=== PATIENT | male | born 1945 | race Caucasian/White ===

== ENCOUNTER → 2017-02-15 | Outpatient (CLI) | payer OTHER ==
[~2017-02-15] MED LIST: ALBUAER19 INH; ASPI81TA28 PO; ATOR10TA82 PO; Amoxicillin PO; ENAL20TA PO; FLUT0.15 NAE; FRS/40 PO; GABA-113 PO; GLYB-108 PO; MAGN400T6 PO; MONT1TAB5 PO; Metoprolol ER PO; SILD100T PO; TAMS0.4C38 PO; TEST1INJ2 INJ
[2017-02-15 16:55] LABS: SYNOVIAL FLUID APPEARANCE CLEAR; SYNOVIAL FLUID COLOR YELLOW; SYNOVIAL FLUID MONONUC RELAT 55.4 %; SYNOVIAL FLUID POLYNUC RELAT 44.6 %
== END | disposition home or self-care (01) ==
LOC: C.LAB 13:37
PROVIDERS: ATTEND Orthopaedic Surgery
DX: M25.462 Effusion, left knee (principal)